=== PATIENT | female | born 1990 | race Caucasian/White ===

== ENCOUNTER 2017-09-23 21:35 | Emergency (ER) | payer OTHER ==
[2017-09-23 22:03] VITALS: BP 124/75; PULSE 66; TEMP 98.9; BMI 27.3
--- NOTE | 2017-09-23 23:02 | PDOC ---
History of Present Illness - General History Source: Patient Exam Limitations: No Limitations - History of Present Illness Initial Comments: 09/24/17 00:56 The patient is a 27 year old female with a significant past medical history of nephrolithiasis who presents to the ED with complaints of chest pain for several months. The patient reports right sided chest pain that radiates to her right rib. She states her pain is reproducible when she raises her arms and notes her chest pain is worsened on deep inspiration and cough. Patient states her present symptoms are not similar to her history of kidney stones. Denies fever or chills. Denies shortness of breath or palpitations. Denies nausea, vomiting, or diarrhea. Denies changes in urinary output. Denies focal numbness, weakness, or tingling. Denies any other symptoms. Social hx: The patient smokes 6 cigarettes a day for the past 6 years. She is currently unemployed and stays at home with her 2 kids. Last Menstrual Period: 09/15/17 <Ritika Sosa - Last Filed: 09/24/17 00:56> <Felicitas Escamilla - Last Filed: 09/24/17 02:11> - General Chief Complaint: Pain Stated Complaint: RT BREAST PAIN Time Seen by Provider: 09/23/17 23:02 Past History <Ritika Sosa - Last Filed: 09/24/17 00:56> - Past Medical History Asthma: No Cancer: No Cardiac Disorders: No COPD: No Diabetes: No HTN: No Psychiatric Problems: Yes (Anxiety) Seizures: No Thyroid Disease: No - Suicide/Smoking/Psychosocial Hx Smoking Status: Yes Smoking History: Never smoked Have you smoked in the past 12 months: Yes Number of Cigarettes Smoked Daily: 5 Information on smoking cessation initiated: No Hx Alcohol Use: No Drug/Substance Use Hx: No Substance Use Type: None Hx Substance Use Treatment: No <Felicitas Escamilla - Last Filed: 09/24/17 02:11> - Past Medical History Allergies/Adverse Reactions: Allergies Allergy/AdvReac Type Severity Reaction Status Date / Time No Known Allergies Allergy Verified 09/23/17 22:00 Home Medications: Ambulatory Orders Vitamins (Sjr) - 1 tab PO DAILY 04/21/15 Ibuprofen [Motrin -] 400 mg PO QID #28 tablet 04/22/15 Methocarbamol [Robaxin -] 500 mg PO TID #21 tablet 09/24/17 Review of Systems - Review of Systems Able to Perform ROS?: Yes Comments:: 09/24/17 00:57 CONSTITUTIONAL: Absent: fever, chills, diaphoresis, generalized weakness, malaise, loss of appetite HEENT: Absent: rhinorrhea, nasal congestion, throat pain, throat swelling, difficulty swallowing, mouth swelling, ear pain, eye pain, visual Changes CARDIOVASCULAR: + chest pain Absent: syncope, palpitations, irregular heart rate, lightheadedness, peripheral edema RESPIRATORY: Absent: cough, shortness of breath, dyspnea with exertion, orthopnea, wheezing, stridor, hemoptysis GASTROINTESTINAL: Absent: abdominal pain, abdominal distension, nausea, vomiting, diarrhea, constipation, melena, hematochezia GENITOURINARY: Absent: dysuria, frequency, urgency, hesitancy, hematuria, flank pain, genital pain MUSCULOSKELETAL: Absent: myalgia, arthralgia, joint swelling SKIN: Absent: rash, itching, pallor HEMATOLOGIC/IMMUNOLOGIC: Absent: easy bleeding, easy bruising, lymphadenopathy, frequent infections ENDOCRINE: Absent: unexplained weight gain, unexplained weight loss, heat intolerance, cold intolerance NEUROLOGIC: Absent: headache, focal weakness or paresthesias, dizziness, unsteady gait, seizure, mental status changes, bladder or bowel incontinence PSYCHIATRIC: Absent: anxiety, depression, suicidal or homicidal ideation, hallucinations. All Other Systems: Reviewed and Negative <Ritika Sosa - Last Filed: 09/24/17 00:56> *Physical Exam - Vital Signs Last Vital Signs Temp Pulse Resp BP Pulse Ox 98.9 F 66 20 124/75 99 09/23/17 22:01 09/23/17 22:01 09/23/17 22:01 09/23/17 22:01 09/23/17 22:01 - Physical Exam Comments: 09/24/17 00:57 GENERAL: Well developed, well nourished. Awake and alert. No acute distress. HEENT: Normocephalic, atraumatic. PERRLA, EOMI. No conjunctival pallor. Sclera are non- icteric. Moist mucous membranes. Oropharynx is clear. NECK: Supple. Full ROM. No JVD. Carotid pulses 2+ and symmetric, without bruits. No thyromegaly. No lymphadenopathy. CARDIOVASCULAR: Regular rate and rhythm. No murmurs, rubs, or gallops. Distal pulses are 2+ and symmetric. PULMONARY: No evidence of respiratory distress. Lungs clear to auscultation bilaterally. No wheezing, rales or rhonchi. ABDOMINAL: Soft. Non-tender. Non-distended. No rebound or guarding. No organomegaly. Normoactive bowel sounds. MUSCULOSKELETAL Normal range of motion at all joints. No bony deformities or tenderness. No CVA tenderness. EXTREMITIES: No cyanosis. No clubbing. No edema. No calf tenderness. SKIN: Warm and dry. Normal capillary refill. No rashes. No jaundice. NEUROLOGICAL: Alert, awake, appropriate. Cranial nerves 2-12 intact. No deficits to light touch and temperature in face, upper extremities and lower extremities. No motor deficits in the in face, upper extremities and lower extremities. Normoreflexic in the upper and lower extremities. Normal speech. Toes are down- going bilaterally. Gait is normal without ataxia. PSYCHIATRIC: Cooperative. Good eye contact. Appropriate mood and affect. <Ritika Sosa - Last Filed: 09/24/17 00:56> - Vital Signs Last Vital Signs Temp Pulse Resp BP Pulse Ox 98.9 F 66 20 124/75 99 09/23/17 22:01 09/23/17 22:01 09/23/17 22:01 09/23/17 22:01 09/23/17 22:01 <Felicitas Escamilla - Last Filed: 09/24/17 02:11> Heart Score/ECG Review #1 09/23/17 23:54 Sinus bradychardia at 58 bpm MD interval 126 ms QRS duration 90 ms Reported by: Dr. Escamilla <Ritika Sosa - Last Filed: 09/24/17 00:56> ED Treatment Course - LABORATORY CBC & Chemistry Diagram: 09/23/17 23:39 09/23/17 23:39 - ADDITIONAL ORDERS Additional order review: 09/23/17 23:39 RBC 4.40 MCV 84.9 MCHC 34.7 RDW 14.4 MPV 8.2 Neutrophils % 69.6 Lymphocytes % 21.2 D Monocytes % 6.6 Eosinophils % 2.1 D Basophils % 0.5 <Ritika Sosa - Last Filed: 09/24/17 00:56> - LABORATORY CBC & Chemistry Diagram: 09/23/17 23:39 09/23/17 23:39 <Felicitas Escamilla - Last Filed: 09/24/17 02:11> Medical Decision Making - Medical Decision Making 09/24/17 02:09 Pt comes with atypical Right sided CP. No rash, no falls, no bruising, and clear lungs and heart sounds normal. EKG is normal. CXR not needed. Vitals normal Pt has anxiety, and I reasured her that this is musculoskeletal pain. <Felicitas Escamilla - Last Filed: 09/24/17 02:11> *DC/Admit/Observation/Transfer - Attestations Scribe Attestion: 09/24/17 00:57 Documentation prepared by Ritika Sosa, acting as remote medical coder for Felicitas Escamilla MD <Ritika Sosa - Last Filed: 09/24/17 00:56> - Discharge Dispostion Admit: No <Felicitas Escamilla - Last Filed: 09/24/17 02:11> Diagnosis at time of Disposition: Muscular chest pain - Discharge Dispostion Disposition: HOME Condition at time of disposition: Stable - Prescriptions Prescriptions: Methocarbamol [Robaxin -] 500 mg PO TID #21 tablet - Referrals Referrals: Mariana Do MD [Primary Care Provider] - - Patient Instructions Printed Discharge Instructions: DI for Atypical Chest Pain - Post Discharge Activity
[2017-09-23] MEDS ORDERED: IBUPROFEN 600 MG TABLET (FP) PO ONE (23:29)
[2017-09-23] MEDS ORDERED: METHOCARBAMOL 500 MG TABLET PO ONE (23:29)
[2017-09-23 23:46] LABS: BASO % 0.5 % (0-2.0); EOS % 2.1 % (0-4.5); HEMATOCRIT 37.4 % (32.4-45.2); LYMPH % 21.2 % (8-40); MCH 29.4 pg (25.7-33.7); MCHC 34.7 g/dl (32.0-36.0); MEAN CELL VOLUME 84.9 fl (80-96); MEAN PLT VOLUME 8.2 fl (7.5-11.1); MONO % 6.6 % (3.8-10.2); NEUT % 69.6 % (42.8-82.8); PLATELET COUNT 232 K/MM3 (134-434); RDW 14.4 % (11.6-15.6); WHITE BLOOD COUNT 8.1 K/mm3 (4.0-10.0)
[2017-09-24 00:09] LABS: ALBUMIN 4.4 g/dl (3.4-5.0); ANION GAP 7 (8-16); BLOOD UREA NITROGEN 12 mg/dL (7-18); CALCIUM 8.6 mg/dL (8.5-10.1); CHLORIDE 106 mmol/L (98-107); CO2 28 mmol/L (21-32); CREATININE 0.8 mg/dL (0.55-1.02); GLUCOSE,RANDOM 84 mg/dL (74-106); POTASSIUM 4.3 mmol/L (3.5-5.1); SGOT/AST 15 U/L (15-37); SGPT/ALT 15 U/L (12-78); SODIUM 141 mmol/L (136-145)
[2017-09-24 00:11] LABS: ALK PHOS 71 U/L (45-117); BILIRUBIN,TOTAL 0.4 mg/dL (0.2-1.0); TOT PROT 7.6 g/dl (6.4-8.2)
[2017-09-24] MEDS ORDERED: METHOCARBAMOL 500 MG TABLET ONE (00:44)
[2017-09-24] MEDS ORDERED: IBUPROFEN 600 MG TABLET (FP) PO ONE (00:44)
--- NOTE | 2017-09-24 10:40 | EKG ---
Test Reason : Blood Pressure : / mmHG Vent. Rate : 058 BPM Atrial Rate : 058 BPM P-R Int : 126 ms QRS Dur : 090 ms QT Int : 392 ms P-R-T Axes : 054 066 055 degrees QTc Int : 384 ms SINUS BRADYCARDIA WITH SINUS ARRHYTHMIA OTHERWISE NORMAL ECG WHEN COMPARED WITH ECG OF 29-OCT-2008 18:54, VENT. RATE HAS DECREASED BY 30 BPM Confirmed by ELTON PERKINS MD ([id number]) on 09/24/2017 10:40:41 AM Referred By: Confirmed By:ELTON PERKINS MD
== END 2017-09-24 01:15 | disposition home or self-care (01) ==
LOC: JER 21:35
DX: R07.89 Other chest pain (principal)
CPT/HCPCS: 36415; 80053; 85025; 93005; 93010; 99281-25

== ENCOUNTER 2018-02-15 14:51 | Emergency (ER) | payer OTHER ==
[2018-02-15 15:01] VITALS: BP 106/56; PULSE 90; TEMP 98.3; BMI 27.3
--- NOTE | 2018-02-15 15:44 | PDOC ---
History of Present Illness - General Chief Complaint: Cold Symptoms Stated Complaint: SORE THROAT, COUGH Time Seen by Provider: 02/15/18 15:18 History Source: Patient Exam Limitations: No Limitations - History of Present Illness Initial Comments: 02/15/18 15:44 Mom here with children all ill with same respiratory infection. Was concerned about low-grade fevers and sore throat pain. States illness has been circulating around house between children and herself. Has used over-the- counter medicines with some relief. Timing/Duration: reports: constant, changing over time, getting worse Severity: reports: mild, moderate Associated Symptoms: reports: cough, earache, fever/chills, nasal congestion, nasal drainage, sore throat Past History - Travel Traveled outside of the country in the last 30 days: No Close contact w/someone who was outside of country & ill: No - Past Medical History Allergies/Adverse Reactions: Allergies Allergy/AdvReac Type Severity Reaction Status Date / Time No Known Allergies Allergy Verified 02/15/18 15:17 Home Medications: Ambulatory Orders NK [No Known Home Medication] 02/15/18 Asthma: No Cancer: No Cardiac Disorders: No COPD: No Diabetes: No HTN: No Psychiatric Problems: Yes (Anxiety) Seizures: No Thyroid Disease: No - Suicide/Smoking/Psychosocial Hx Smoking Status: Yes Smoking History: Current every day smoker Have you smoked in the past 12 months: Yes Number of Cigarettes Smoked Daily: 5 Information on smoking cessation initiated: No Hx Alcohol Use: No Drug/Substance Use Hx: No Substance Use Type: None Hx Substance Use Treatment: No Review of Systems - Review of Systems Able to Perform ROS?: Yes Is the patient limited Gabonese proficient: Yes Constitutional: Yes: Symptoms Reported, See HPI, Fever, Malaise HEENTM: Yes: Symptoms Reported, Nose Congestion, Throat Pain, Difficulty Swallowing Respiratory: Yes: Symptoms reported, See HPI, Cough. No: Wheezing ABD/GI: Yes: See HPI. No: Symptoms Reported Integumentary: No: Symptoms Reported All Other Systems: Reviewed and Negative (moist nonproductive) *Physical Exam - Vital Signs Last Vital Signs Temp Pulse Resp BP Pulse Ox 98.3 F 90 18 106/56 L 100 02/15/18 15:00 02/15/18 15:00 02/15/18 15:00 02/15/18 15:00 02/15/18 15:00 - Physical Exam General Appearance: Yes: Nourished, Appropriately Dressed, Apparent Distress, Mild Distress HEENT: positive: ROSANNE, Normal ENT Inspection, TMs Normal (congested but landmarks easily visualized), Pharynx Normal (no redness, swelling, or exudate, however noted whitish posterior sinus drainage), Nasal Congestion, Rhinorrhea. negative: Pharyngeal Erythema, Tonsillar Exudate Neck: positive: Supple, Lymphadenopathy (R), Lymphadenopathy (L) Respiratory/Chest: positive: Lungs Clear, Normal Breath Sounds. negative: Rhonchi, Wheezing (no wheezing or retractions) Gastrointestinal/Abdominal: positive: Soft Extremity: positive: Normal Capillary Refill, Normal Inspection. 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 No evidence of bacterial infection therefore will treat conservatively *DC/Admit/Observation/Transfer Diagnosis at time of Disposition: Upper respiratory infection, viral - Discharge Dispostion Disposition: HOME Condition at time of disposition: Stable Decision to Admit order: No - Referrals Referrals: Jaqueline Ramirez MD [Primary Care Provider] - - Patient Instructions Printed Discharge Instructions: DI for Viral Upper Respiratory Infection -- Adult Additional Instructions: Rest, drink lots of fluids: Teas, water, soups, Pedialyte Saltwater gargles Steamy showers/seem to face break up mucus Avoid contact with others until fevers and cough resolved Lots of handwashing and good hygiene Continue [id number] medications for symptomatic relief Tylenol or Motrin for fever and pain Followup with private physician in one to 2 days as needed Return to emergency department for worsened symptoms, fevers, dehydration - Post Discharge Activity Forms/Work/School Notes: Back to Work
== END 2018-02-15 15:36 | disposition home or self-care (01) ==
LOC: JERFT 14:51
DX: J06.9 Acute upper respiratory infection, unspecified (principal); F17.210 Nicotine dependence, cigarettes, uncomplicated; F41.9 Anxiety disorder, unspecified
CPT/HCPCS: 99281-25

== ENCOUNTER 2018-03-26 21:01 | Emergency (ER) | payer OTHER ==
[2018-03-26 21:14] VITALS: BP 113/48; PULSE 84; TEMP 99.3; BMI 27.3
--- NOTE | 2018-03-26 21:15 | PDOC ---
Rapid Medical Evaluation Chief Complaint: Nausea/Vomiting Time Seen by Provider: 03/26/18 21:12 Medical Evaluation: Allergies Allergy/AdvReac Type Severity Reaction Status Date / Time No Known Allergies Allergy Verified 02/15/18 15:17 03/26/18 21:12 I have performed a brief in person evaluation of this patient. This patient presents with a CC of: cough and "I vomited up blood x 1" Pt is a 27 YO who is who is 3 months who states over the past 24 hours she has had a cough and this morning she has been vomiting and had one episode of hemoptysis. Pt denies NSAID use, denies hx of GI bleeds, denies hx of PE. PE: Skin: Clear Lungs: Clear Heart: RRR Abd: No pain MS: Moves all extremities without difficulty. Neuro: Alert and oriented Psych: Appropriate affect I have ordered the following: Basic labs The patient will proceed to the ED for further evaluation. Discharge Disposition - Diagnosis Nausea & vomiting Qualifiers: Vomiting type: unspecified Vomiting Intractability: non-intractable Qualified Code(s): R11.2 - Nausea with vomiting, unspecified - Referrals Referrals: Jaqueline Ramirez MD [Primary Care Provider] - - Patient Instructions - Post Discharge Activity
--- NOTE | 2018-03-26 22:11 | PDOC ---
History of Present Illness - General Chief Complaint: Nausea/Vomiting Stated Complaint: COLD SYMPTOMS Time Seen by Provider: 03/26/18 21:12 - History of Present Illness Initial Comments: 03/26/18 22:09 27-year-old female with cough 5 days without fever. She had 3 episodes of vomiting today the last of the episodes she noticed the blood streak in her vomit she has no other associated symptoms Past History - Past Medical History Allergies/Adverse Reactions: Allergies Allergy/AdvReac Type Severity Reaction Status Date / Time No Known Allergies Allergy Verified 03/26/18 21:14 Home Medications: Ambulatory Orders NK [No Known Home Medication] 02/15/18 Asthma: No Cancer: No Cardiac Disorders: No COPD: No Diabetes: No HTN: No Psychiatric Problems: Yes (Anxiety) Seizures: No Thyroid Disease: No - Suicide/Smoking/Psychosocial Hx Smoking Status: Yes Smoking History: Never smoked Have you smoked in the past 12 months: Yes Number of Cigarettes Smoked Daily: 5 Information on smoking cessation initiated: No Hx Alcohol Use: No Drug/Substance Use Hx: No Substance Use Type: None Hx Substance Use Treatment: No Review of Systems - Review of Systems Constitutional: Yes: Malaise. No: Chills, Fever, Night Sweats Respiratory: Yes: Cough ABD/GI: Yes: Nausea, Vomiting *Physical Exam - Vital Signs Last Vital Signs Temp Pulse Resp BP Pulse Ox 99.3 F 84 18 113/48 L 98 03/26/18 21:11 03/26/18 21:11 03/26/18 21:11 03/26/18 21:11 03/26/18 21:11 - Physical Exam Comments: 03/26/18 22:09 HEAD: NC/AT EYES: Conjuntiva clear Ears: Canals and TM's normal NOSE: No d/c THROAT: Moist mucous membrances, oral pharanx clear, uvula midline; petica at the soft palate NECK: Supple without adenopathy CARDIAC: S1 S2 LUNGS: CTA Full and Equal breath sounds ABDOMEN: Soft NT ND MS: Full ROM in all joints without edema NEUROLOGIC: No gross sensory or motor deficits, NVID SKIN: Normal color and temperature no lesions or rashes Medical Decision Making - Medical Decision Making 03/26/18 22:10 I believe the blood tinged vomitus from the petechia at the soft palate. This is a viral upper respiratory syndrome I will have her follow-up with her PCP *DC/Admit/Observation/Transfer Diagnosis at time of Disposition: URI (upper respiratory infection) Nausea & vomiting Qualifiers: Vomiting type: unspecified Vomiting Intractability: non-intractable Qualified Code(s): R11.2 - Nausea with vomiting, unspecified - Discharge Dispostion Disposition: HOME Condition at time of disposition: Stable Decision to Admit order: No - Referrals Referrals: Jaqueline Ramirez MD [Primary Care Provider] - - Patient Instructions Printed Discharge Instructions: DI for Viral Upper Respiratory Infection -- Adult Additional Instructions: Return to the emergency room should symptoms worsen or go unresolved. Please take [id number] cough syrup as directed which will help her cough especially at night follow-up with her primary care physician once 2 days for further evaluation and treatment options - Post Discharge Activity
== END 2018-03-26 22:13 | disposition home or self-care (01) ==
LOC: JERFT 21:01 → JER 21:01 → JERFT 22:13
DX: O26.891 Other specified pregnancy related conditions, first trimester (principal); J06.9 Acute upper respiratory infection, unspecified; R11.2 Nausea with vomiting, unspecified; Z3A.12 12 weeks gestation of pregnancy
CPT/HCPCS: 99281-25

== ENCOUNTER 2018-05-15 18:06 | Observation (INO) | payer OTHER ==
[2018-05-15] MEDS ORDERED: ACETAMINOPHEN 1000 MG/100 ML VIAL (NON FORMULARY) IVPB ONE (18:17)
[2018-05-15] MEDS ORDERED: ONDANSETRON 4 MG/2 ML VIAL IVPB ONE (18:17)
--- NOTE | 2018-05-15 18:17 | PDOC ---
Rapid Medical Evaluation Medical Evaluation: Allergies Allergy/AdvReac Type Severity Reaction Status Date / Time No Known Allergies Allergy Verified 03/26/18 21:14 I have performed a brief in-person evaluation of this patient. The patient presents with a chief complaint of: lower abdominal from today; had termination of 2 weeks ago; +subjective fever and nausea; denies vomiting, diarrhea, urinary complaints; has mild vaginal spotting from recent termination Pertinent physical exam findings: In NAD, abdomen soft, ND, mild TTP in LLQ I have ordered the following: Labs The patient will proceed to the ED for further evaluation. 05/15/18 18:13 Discharge Disposition - Referrals Referrals: Jaqueline Ramirez MD [Primary Care Provider] - - Patient Instructions - Post Discharge Activity
[2018-05-15] MEDS ORDERED: ACETAMINOPHEN INJECTION 100 ML IVPB ONE (19:18)
[2018-05-15] MEDS ORDERED: ONDANSETRON 4 MG/2 ML VIAL ONE (19:19)
[2018-05-15 19:22] LABS: BASO % 0.1 % (0-2.0); HEMATOCRIT 35.5 % (32.4-45.2); HEMOGLOBIN 12.5 GM/dL (10.7-15.3); LYMPH % 2.3 % (8-40); MCH 30.4 pg (25.7-33.7); MCHC 35.2 g/dl (32.0-36.0); MEAN CELL VOLUME 86.3 fl (80-96); MEAN PLT VOLUME 8.1 fl (7.5-11.1); MONO % 2.9 % (3.8-10.2); NEUT % 94.7 % (42.8-82.8); PLATELET COUNT 302 K/MM3 (134-434); RBC 4.12 M/mm3 (3.60-5.2); RDW 13.9 % (11.6-15.6); WHITE BLOOD COUNT 26.2 K/mm3 (4.0-10.0)
[2018-05-15] MEDS ORDERED: SODIUM CHLORIDE 1,000 ML IV STA (19:31)
--- NOTE | 2018-05-15 19:32 | PDOC ---
History of Present Illness - General Chief Complaint: Pain Stated Complaint: ABD PAIN Time Seen by Provider: 05/15/18 19:29 History Source: Patient - History of Present Illness Initial Comments: 05/15/18 20:03 27 year old Female status post termination of 2 weeks ago complaining of spotting for 2 weeks, subjective fever times one day with left pelvic pain. Denies urinary symptoms, hematuria, flank pain, vaginal discharge. Patient reports having the procedure in [facility]. Patient reports feeling weak. Patient is pale appearing. Past medical history of anxiety, anemia? j2ee consultant: Dr. Aden 05/16/18 00:54 Past History - Past Medical History Allergies/Adverse Reactions: Allergies Allergy/AdvReac Type Severity Reaction Status Date / Time No Known Allergies Allergy Verified 03/26/18 21:14 Home Medications: Ambulatory Orders Doxycycline Monohydrate [Mondoxyne Nl] 100 mg PO BID #20 capsule 05/15/18 Asthma: No Cancer: No Cardiac Disorders: No COPD: No Diabetes: No HTN: No Psychiatric Problems: Yes (Anxiety) Seizures: No Thyroid Disease: No - Suicide/Smoking/Psychosocial Hx Smoking Status: Yes Smoking History: Current some day smoker Have you smoked in the past 12 months: Yes Number of Cigarettes Smoked Daily: 2 Information on smoking cessation initiated: Yes Hx Alcohol Use: Yes (Social) Drug/Substance Use Hx: No Substance Use Type: None Hx Substance Use Treatment: No Review of Systems - Review of Systems Able to Perform ROS?: Yes Is the patient limited Maltese proficient: No Constitutional: Yes: Fever, Malaise, Weakness. No: Symptoms Reported, See HPI, Chills, Diaphoresis, Loss of Appetite, Night Sweats, Weight Stable, Unintentional Wgt. Loss, Unexplained wgt Loss, Other ABD/GI: Yes: Abdominal cramping. No: Symptoms Reported, See HPI, Abdominal Distended, Abd. Pain w/ defecation, Blood Streaked Bowels, Constipated, Diarrhea , Difficulty Swallowing, Nausea, Poor Appetite, Poor Fluid Intake, Rectal Bleeding, Vomiting, Indigestion, Tarry Stools, Other : Yes: Other (vaginal bleeding, left pelvic pain) *Physical Exam - Vital Signs Last Vital Signs Temp Pulse Resp BP Pulse Ox 98.7 F 109 H 18 105/63 98 05/15/18 18:12 05/15/18 18:12 05/15/18 18:12 05/15/18 18:12 05/15/18 18:12 - Physical Exam General Appearance: Yes: Appropriately Dressed Respiratory/Chest: positive: Lungs Clear, Normal Breath Sounds Female Pelvic Exam: positive: normal external exam, cervical os closed, CMT, adnexal tenderness (left adnexal tenderness) Gastrointestinal/Abdominal: positive: Normal Bowel Sounds, Tender (left LLQ/ left pelvic/ suprapubic pain) Musculoskeletal: positive: Normal Inspection Extremity: positive: Normal Capillary Refill, Normal Inspection, Normal Range of Motion Integumentary: positive: Warm, Pale Neurologic: positive: Fully Oriented, Alert Moderate Sedation - Procedure Monitoring Vital Signs: Procedure Monitoring Vital Signs Temperature 98.7 F 05/15/18 18:12 Pulse Rate 109 H 05/15/18 18:12 Respiratory Rate 18 05/15/18 18:12 Blood Pressure 105/63 05/15/18 18:12 O2 Sat by Pulse Oximetry (%) 98 05/15/18 18:12 ED Treatment Course - LABORATORY CBC & Chemistry Diagram: 05/15/18 23:40 05/15/18 19:11 - ADDITIONAL ORDERS Additional order review: 05/15/18 19:11 RBC 4.12 MCV 86.3 MCHC 35.2 RDW 13.9 MPV 8.1 Neutrophils % 94.7 H D Lymphocytes % 2.3 L D Monocytes % 2.9 L Eosinophils % 0.0 D Basophils % 0.1 - Medications Given in the ED: ED Medications Discontinued Medications Generic Name Dose Route Start Last Admin Trade Name Freq PRN Reason Stop Dose Admin Acetaminophen 1,000 mg 05/15/18 18:17 05/15/18 19:19 Ofirmev Injection - IVPB 05/15/18 18:18 1,000 mg ONCE ONE Administration Ondansetron HCl 4 mg 05/15/18 18:17 05/15/18 19:20 Zofran Injection IVPB 05/15/18 18:18 4 mg ONCE ONE Administration Medical Decision Making - Medical Decision Making 05/15/18 20:06 A: PID; leukocytosis P: CBC : leukocytosis with bands CMP UA 05/16/18 00:53 Dr. Gilliam consulted. advised to call Dr. Nina who covers for Dr. aden. 05/16/18 01:[address] harrell. recommends doxycyline/ flagyl/ ceftriaxone x1. if clinically well patient can follow up on sunday in the clinic. patient priscilla dout to Dr. slater/ Dr. tran *DC/Admit/Observation/Transfer Diagnosis at time of Disposition: PID (pelvic inflammatory disease) Leukocytosis Qualifiers: Leukocytosis type: bandemia Qualified Code(s): D72.825 - Bandemia - Discharge Dispostion Decision to Admit order: Yes - Prescriptions Prescriptions: Doxycycline Monohydrate [Mondoxyne Nl] 100 mg PO BID #20 capsule - Referrals Referrals: Jaqueline Aden MD [Primary Care Provider] - - Patient Instructions - Post Discharge Activity
[2018-05-15 19:36] LABS: URINE APPEARANCE CLEAR; URINE BILIRUBIN NEGATIVE (<2.0 mg/dL); URINE COLOR LTYELLOW; URINE GLUCOSE (UA) NEGATIVE (NEGATIVE); URINE KETONE NEGATIVE (NEGATIVE); URINE LEUK ESTERASE NEGATIVE (NEGATIVE); URINE NITRITE NEGATIVE (NEGATIVE); URINE PROTEIN NEGATIVE (NEGATIVE); URINE UROBILINOGEN NEGATIVE mg/dL (0.2-1.0)
[2018-05-15 19:38] LABS: HCG,QUALITATIVE URINE Borderline hCG level
[2018-05-15 20:13] LABS: PLATELET ESTIMATE ADEQUATE
[2018-05-15 20:18] LABS: ALBUMIN 4.3 g/dl (3.4-5.0); CALCIUM 8.8 mg/dL (8.5-10.1); CREATININE 0.8 mg/dL (0.55-1.3); SGPT/ALT 16 U/L (13-61)
[2018-05-15 20:19] LABS: ALK PHOS 95 U/L (45-117); ANION GAP 9 MMOL/L (8-16); BILIRUBIN,TOTAL 0.6 mg/dL (0.2-1); BLOOD UREA NITROGEN 10 mg/dL (7-18); CHLORIDE 102 mmol/L (98-107); CO2 25 mmol/L (21-32); GLUCOSE,RANDOM 138 mg/dL (74-106); POTASSIUM 3.7 mmol/L (3.5-5.1); SGOT/AST 16 U/L (15-37); SODIUM 136 mmol/L (136-145); TOT PROT 7.8 g/dl (6.4-8.2)
[2018-05-15] MEDS ORDERED: LACTATED RINGERS SOLUTION 1,000 ML/1,000 ML INFUS.BAG IV SCH (21:00)
[2018-05-15] MEDS ORDERED: AZITHROMYCIN 500 MG TABLET PO ONE (23:38)
[2018-05-15] MEDS ORDERED: CEFTRIAXONE 1,000 MG in DEXTROSE 5%-WATER - 50 ML IVPB ONE (23:38)
[2018-05-15] MEDS ORDERED: SODIUM CHLORIDE 500 ML IV STA (23:39)
[2018-05-15] MEDS ORDERED: AZITHROMYCIN 500 MG TABLET ONE (23:41)
[2018-05-15] MEDS ORDERED: CEFTRIAXONE 1 GM/50 ML BAG ONE ×2 (23:42→23:43)
[2018-05-15 23:48] LABS: BASO % 0.4 % (0-2.0); EOS % 0.1 % (0-4.5); HEMATOCRIT 33.1 % (32.4-45.2); HEMOGLOBIN 11.6 GM/dL (10.7-15.3); LYMPH % 5.4 % (8-40); MCH 30.2 pg (25.7-33.7); MCHC 34.9 g/dl (32.0-36.0); MEAN CELL VOLUME 86.4 fl (80-96); MONO % 2.7 % (3.8-10.2); NEUT % 91.4 % (42.8-82.8); PLATELET COUNT 276 K/MM3 (134-434); RBC 3.83 M/mm3 (3.60-5.2); RDW 13.9 % (11.6-15.6); WHITE BLOOD COUNT 21.7 K/mm3 (4.0-10.0)
[2018-05-16 00:48] LABS: PLATELET ESTIMATE ADEQUATE
[2018-05-16] MEDS ORDERED: DOXYCYCLINE INJECTION 100 MG in DEXTROSE 5%-WATER - 100 ML IVPB ONE (01:08)
[2018-05-16] MEDS ORDERED: ACETAMINOPHEN 325 MG TABLET (FP) PO PRN (02:07)
[2018-05-16] MEDS ORDERED: DOXYCYCLINE HYCLATE 100 MG VIAL ONE (02:13)
[2018-05-16 02:19] LABS: INR 1.03 (0.83-1.09); PROTHROMBIN TIME (PATIENT) 12.2 SEC (9.7-13.0)
[2018-05-16 02:22] LABS: ACTIVATED PTT 29.3 SECONDS (25.2-36.5)
--- NOTE | 2018-05-16 02:24 | PN ---
Teaching Attending Note Name of Resident: Jose David Jade ATTENDING PHYSICIAN STATEMENT I saw and evaluated the patient. I reviewed the resident's note and discussed the case with the resident. I agree with the resident's findings and plan as documented. SUBJECTIVE: Seen and examined with resident; please see their note for further information regarding hx. Briefly, this is a 27 y/o female with a PMH of sickle cell trait and iron deficency anemia (currently normal Hb) who presents to the ER with a CC of abdominal pain after 2 weeks ago (unsure of who did procedure or where but she indicates she had anesthesia for it and that it took '2 days'). She has 2 living children. She had some discomfort since the procedure that progressed this morning to the point where she came to the hospital; did have some associated nausea and vomitting. Nothing makes her sx better or worse, hasn 't seen any other providers for this. Was on post-procedure antibiotics; unsure of how many days but she indicates that she finished a bottle of doxycycline. ER called mixing plant operator who recommended admission to medicine and rocephin, flagyl, and doxycycline which will be given. 10 sys ROS done and negative aside from HPI PMH and PSH reviewedd FH asked and noncontributory Socially she is a former smoker, has 1 sexual partner Medication list reviewed with resident OBJECTIVE: VS, labs, imaging reviewed NAD, AAO, resting in bed RRR s1/2 no mgr Lungs CTAB w/ sym exp Mildly tender lower abd, nondistended, +bs CN2-12 wnl, no fnd Normal mood, appropriate affect Labs reveal leukocytosis with unremarkable chemistry. Imaging shows thickened endometrium, stigmata of recent , etc. US and CT reviewed ASSESSMENT AND PLAN: This is a 27 y/o presenting with fever, abdominal pain, and leukocytosis after an 2 weeks ago. 1) Infection due to retained products, r/o PID, etc. -BALL WINDER to see tomorrow; will defer mixing plant operator exam to them and ER. Fever, leukocytosis, endometrial thickening seen. -Abx per mixing plant operator; on doxy, rocephin, metro. Ultimate management per mixing plant operator -Checking RPR, G/C, HIV -NPO and IVF in case procedure needed 2) H/O Iron Def. Anemia -No anemia on labs; monitor 3) H/O Sickle Cell Trait -No issues; never been hospitalized, monitor. 4) Liver cysts -Seen on CT incidentally; followup u/s in 2-3 months with PCP FENA -LR@100 -PRN replete -NPO -As tolerated DVT px: Early ambulation, scd GI px: Not indicated Consulting: Acidity Tester Full Code
--- NOTE | 2018-05-16 02:38 | HP ---
CHIEF COMPLAINT: LLQ Pain PCP: Jaqueline Ramirez HISTORY OF PRESENT ILLNESS: 27 y/o F, with PMHx of Anxiety and Sickle cell trait presents with LLQ Abdominal. Patient had a termination of approximately 2 weeks ago (at a facility in [place]). Patient has had minimal pain and vaginal spotting since then. This afternoon after napping, patient woke with sudden onset, constant, 8/10, sharp pain in LLQ that is worse with sitting upright. This is the first time she has experienced such pain. Patient has completed a course of Doxycycline 100mg BID after the procedure. She tried a warm bath which provided minimal relief and she visited the ED. Patient endorses recent fevers ( unmeasured), chills, difficulty breathing, dizziness, decreased PO Intake, nausea with one episode NBNB Vomiting. Denies any diarrhea, constipation, dysuria, hematuria, or vaginal discharge. As per patient, her first was done medicinally. Patient has a hx of 2 male sexual partners. Her and her current sexual partner do not use contraception. Patient denies any hx of STIs/ STDs; Her Last STD test was in 2015. Patient unsure if she received the HPV Vaccine. ER course was notable for: (1) CT A/P, TVUS (2) Ofirmev, Zofran, NS 1.5L (3) Azithromycin, Rocephin (4) Pelvic Exam performed by ED Recent Travel: Denies PAST MEDICAL HISTORY: Anxiety, Sickle Cell Trait PAST SURGICAL HISTORY: Denies Social History: Smokin cigarettes daily since age 22 Alcohol: Occasional Drugs: Denies Family History: Mother: Asthma Father: Cardiac hx Allergies No Known Allergies Allergy (Verified 03/26/18 21:14) HOME MEDICATIONS: Home Medications Medication Instructions Recorded NK [No Known Home Medication] 05/16/18 REVIEW OF SYSTEMS As per HPI PHYSICAL EXAMINATION Vital Signs - 24 hr 05/15/18 18:12 Temperature 98.7 F Pulse Rate 109 H Respiratory 18 Rate Blood Pressure 105/63 O2 Sat by Pulse 98 Oximetry (%) GENERAL: A&Ox3, NAD HEAD: NCAT EYES: PERRL, EOMI EARS, NOSE, THROAT: Oropharynx clear without exudates. Moist mucous membranes. NECK: Supple without lymphadenopathy or JVD LUNGS: CTA b/l, No wheezes, no crackles HEART: Regular rate and rhythm, normal S1 and S2 without murmur ABDOMEN: Soft, tender to palpation in the LLQ with minimal tendernes in the RLQ , not distended, + bowel sounds, + guarding, no rebound MUSCULOSKELETAL: No CVA tenderness. EXTREMITIES: 2+ pulses, No peripheral edema. NEUROLOGICAL: Cranial nerves II-XII intact. Normal speech SKIN: Warm, dry Laboratory Results - last 24 hr 05/15/18 05/15/18 05/15/18 19:11 19:11 19:27 WBC 26.2 H RBC 4.12 Hgb 12.5 Hct 35.5 MCV 86.3 MCH 30.4 MCHC 35.2 RDW 13.9 Plt Count 302 D MPV 8.1 Absolute Neuts (auto) 24.8 H Total Counted Neutrophils % 94.7 H D Neutrophils % (Manual) 90.0 H Band Neutrophils % 5.0 Lymphocytes % 2.3 L D Lymphocytes % (Manual) 4.0 L Monocytes % 2.9 L Monocytes % (Manual) 1 L Eosinophils % 0.0 D Eosinophils % (Manual) 0.0 Basophils % 0.1 Basophils % (Manual) 0.0 Nucleated RBC % 0 Platelet Estimate Adequate Platelet Comment Sodium 136 Potassium 3.7 Chloride 102 Carbon Dioxide 25 Anion Gap 9 BUN 10 Creatinine 0.8 Creat Clearance w eGFR > 60 Random Glucose 138 H Lactic Acid Calcium 8.8 Total Bilirubin 0.6 AST 16 ALT 16 Alkaline Phosphatase 95 Total Protein 7.8 Albumin 4.3 Beta HCG, Quant 25.2 Urine Color Ltyellow Urine Appearance Clear Urine pH 7.0 Ur Specific [place] 1.010 Urine Protein Negative Urine Glucose (UA) Negative Urine Ketones Negative Urine Blood 1+ H Urine Nitrite Negative Urine Bilirubin Negative Urine Urobilinogen Negative Ur Leukocyte Esterase Negative Urine WBC (Auto) <1 Urine RBC (Auto) None Urine HCG, Qual Borderline hcg level Blood Type Antibody Screen 05/15/18 05/15/18 05/15/18 19:30 19:50 23:40 WBC 21.7 H RBC 3.83 Hgb 11.6 Hct 33.1 MCV 86.4 MCH 30.2 MCHC 34.9 RDW 13.9 Plt Count 276 MPV 8.0 Absolute Neuts (auto) 19.8 H Total Counted 100 Neutrophils % 91.4 H Neutrophils % (Manual) 90.0 H Band Neutrophils % 1.0 Lymphocytes % 5.4 L D Lymphocytes % (Manual) 6.0 L Monocytes % 2.7 L Monocytes % (Manual) 3 L Eosinophils % 0.1 D Eosinophils % (Manual) Basophils % 0.4 D Basophils % (Manual) Nucleated RBC % 0 Platelet Estimate Adequate Platelet Comment No clumping noted Sodium Potassium Chloride Carbon Dioxide Anion Gap BUN Creatinine Creat Clearance w eGFR Random Glucose Lactic Acid 1.5 Calcium Total Bilirubin AST ALT Alkaline Phosphatase Total Protein Albumin Beta HCG, Quant Urine Color Urine Appearance Urine pH Ur Specific [place] Urine Protein Urine Glucose (UA) Urine Ketones Urine Blood Urine Nitrite Urine Bilirubin Urine Urobilinogen Ur Leukocyte Esterase Urine WBC (Auto) Urine RBC (Auto) Urine HCG, Qual Blood Type O POSITIVE Antibody Screen Negative ASSESSMENT/PLAN: 27 y/o F, with PMHx of Anxiety and Sickle cell trait presents with LLQ Abdominal pain #PID -R/O Retained contents of inception -WBC 21.7, Borderline HCG level, UA has 1+ blood -Blood Cx -TVUS reveals nonspecific endometrial thickening -CT A/P reveals endometrial thickening, Small nonobstructing renal calculi, Right hepataic lobe cysts -OBGYN (Dr. Hernandez) consulted by ED -Started on Ceftriaxone 2g Daily, Doxycycline 100mg BID, Flagyl 500mg Q8h -Tylenol for pain -Hepatitis B, HIV, RPR, Gonorrhoea, Chlamydia, Trichomonas pending #FEN -IV LR @ 100 mls/hr -Lytes wnl -NPO #PPx -DVT: SCDs, Early ambulation Dispo: Obs, Med-surg Visit type - Emergency Visit Emergency Visit: Yes Care time: The patient presented to the Emergency Department on the above date and was hospitalized for further evaluation of their emergent condition. - New Patient This patient is new to me today: Yes Date on this admission: 05/16/18 - Critical Care Critical Care patient: No
[2018-05-16] MEDS ORDERED: ACETAMINOPHEN 325 MG TABLET (FP) ONE (03:56)
[2018-05-16] MEDS: LACTATED RINGERS SOLUTION 1,000 ML/1,000 ML INFUS.BAG IV SCH (04:18)
--- NOTE | 2018-05-16 05:12 | CONSULT ---
Consult Consult Specialty:: ER Reason for Consultation:: PID vs endometritis - History of Present Illness Chief Complaint: LLQ pain History of Present Illness: 27yo s/p elective termination ~2wks ago in [place] here with LLQ pain. Subjective fevers/chills at home and vaginal spotting since the procedure that has since stopped in the last 24 hours. No purulent discharge. No known history of STIs- uncertain of last exam. 2 lifetime partners. LLQ is non radiating. No OTC meds for relief. No dysuria. No hematuria. One episode of emesis at home, none reported in ER Last saw her OB in January 2018, referred by a friend to the physician in [place] whom performed the termination- has scheduled follow up in the next week with that provider. History of 4 terminations, 1 SAB Primary OBGYN: Dr. Jaqueline Ramirez - History Source History Provided By: Patient - Past Medical History ...: No ...: 5 ...Para: 2 Heme/Onc: Yes: Current Chemotherapy, Sickle Cell Trait. No: Anemia, B12 Deficiency, Bleeding Disorder, Cancer, Current Radiation Therapy, Hemochromatosis, Hypercoaguable State, Myeloproliferative Synd, Sickle Cell Disease, Thrombocytopenia, Other Infectious Disease: Yes: STD's Psych: Yes: Anxiety, Panic Additional Medical History: one 2013 no complication - Past Surgical History Additional Surgical History: D&C - Alcohol/Substance Use Hx Alcohol Use: Yes (Social) - Smoking History Smoking history: Current some day smoker Have you smoked in the past 12 months: Yes Aproximately how many cigarettes per day: 2 - Social History History of Recent Travel: No Home Medications - Allergies Allergies/Adverse Reactions: Allergies Allergy/AdvReac Type Severity Reaction Status Date / Time No Known Allergies Allergy Verified 03/26/18 21:14 - Home Medications Home Medications: Ambulatory Orders NK [No Known Home Medication] 05/16/18 Physical Exam Vital Signs: Vital Signs Temperature 98.5 F 05/16/18 03:14 Pulse Rate 88 05/16/18 03:14 Respiratory Rate 19 05/16/18 03:14 Blood Pressure 110/78 05/16/18 03:14 O2 Sat by Pulse Oximetry (%) 98 05/15/18 18:12 Constitutional: Yes: Well Nourished, No Distress, Calm Gastrointestinal: Yes: Tenderness (LLQ tenderness however, no guarding or rebound) Labs: CBC, BMP 05/15/18 23:40 05/15/18 19:11 Imaging - Results Cat Scan: Report Reviewed, Image Reviewed Ultrasound: Report Reviewed, Image Reviewed Assessment/Plan 27yo s/p D&C here with LLQ pain, leukocytosis- endometritis vs PID Afebrile here and able to tolerate po, appears comfortable and in no distress. Is a candidate for outpatient management Elevated WBC, however, improved from 26 to 21 within a few hours; can be rechecked on an outpatient basis once she has completed at least 48 hours of oral antibiotics. Imaging reviewed, thickened ES of 2.7cm, but no discrete mass concerning for retained POCs- likely postoperative changes vs endometritis. PID vs endometritis; agree with Ceftriaxone dose x 1 here, followed by oral Doxy /Flagyl course x 14 days as outpatient Should follow up with [facility] in next 48 hours as outpatient, have CBC rechecked, contraception counseling. Tylenol/Motrin for pain as needed Tyra Hernandez MD
[2018-05-16 05:13] VITALS: BMI 26.9
[2018-05-16] MEDS ORDERED: ACETAMINOPHEN 1000 MG/100 ML VIAL (NON FORMULARY) IVPB ONE (06:15)
[2018-05-16] MEDS ORDERED: SODIUM CHLORIDE 1,000 ML IV STA (06:40)
--- NOTE | 2018-05-16 07:04 | RAPID ---
Physical Examination Vital Signs: Vital Signs Temperature 102.8 F H 05/16/18 06:30 Pulse Rate 90 05/16/18 06:30 Respiratory Rate 18 05/16/18 05:08 Blood Pressure 123/63 05/16/18 06:30 O2 Sat by Pulse Oximetry (%) 98 05/16/18 05:08 Labs: CBC, BMP 05/15/18 23:40 05/15/18 19:11 Rapid Response - Rapid Response Assessment: Rapid response was called at 06:12. call or contact centre team leader team responded immediately. Informed by nursing staff that patient is Tachycardic to 148, and Hypotensive to 90s/60s. T 102.8, 91/59, HR 143, Tachypneic, 99% RA Rigors, Anxious in moderate distress RRR S1 S2 CTA b/l Severe abdominal pain with palpation of LLQ A/P #Sepsis likely due to PID -IV Ofirmev 1000mg Ordered -LR changed to wide open -2nd IV Line started, NS Bolus started -Spoke with Dr. Segal, Continue ABx management -Repeat BP after fluid given 102/64, HR 90
[2018-05-16 07:24] LABS: BASO % 0.2 % (0-2.0); EOS % 0.2 % (0-4.5); HEMATOCRIT 28.4 % (32.4-45.2); HEMOGLOBIN 10.2 GM/dL (10.7-15.3); LYMPH % 7.9 % (8-40); MCHC 35.7 g/dl (32.0-36.0); MEAN CELL VOLUME 86.9 fl (80-96); MEAN PLT VOLUME 8.3 fl (7.5-11.1); MONO % 0.9 % (3.8-10.2); NEUT % 90.8 % (42.8-82.8); PLATELET COUNT 204 K/MM3 (134-434); RBC 3.27 M/mm3 (3.60-5.2); RDW 13.8 % (11.6-15.6); WHITE BLOOD COUNT 7.5 K/mm3 (4.0-10.0)
[2018-05-16 08:54] LABS: ALBUMIN 2.8 g/dl (3.4-5.0); ALK PHOS 71 U/L (45-117); ANION GAP 7 MMOL/L (8-16); BILIRUBIN,TOTAL 0.4 mg/dL (0.2-1); BLOOD UREA NITROGEN 7 mg/dL (7-18); CALCIUM 7.3 mg/dL (8.5-10.1); CHLORIDE 109 mmol/L (98-107); CO2 24 mmol/L (21-32); CREATININE 0.5 mg/dL (0.55-1.3); GLUCOSE,RANDOM 112 mg/dL (74-106); MAGNESIUM 1.7 mg/dL (1.8-2.4); PHOSPHOROUS 2.5 mg/dL (2.5-4.9); POTASSIUM 3.6 mmol/L (3.5-5.1); SGOT/AST 12 U/L (15-37); SGPT/ALT 16 U/L (13-61); SODIUM 140 mmol/L (136-145); TOT PROT 5.7 g/dl (6.4-8.2)
[2018-05-16] MEDS ORDERED: CEFTRIAXONE 2 GM in DEXTROSE 5%-WATER 100 ML IVPB SCH (10:00)
[2018-05-16] MEDS ORDERED: PT OWN MED DRAWER 7, Y5N ONE ×2 (10:16→21:10)
[2018-05-16] MEDS ORDERED: DEXTROSE 5%-WATER 100 ML IVPB ONE (10:17)
[2018-05-16] MEDS: DOXYCYCLINE INJECTION 100 MG in DEXTROSE 5%-WATER - 100 ML IVPB SCH ×2 (10:27→21:25)
--- NOTE | 2018-05-16 12:11 | EKG ---
Test Reason : Blood Pressure : / mmHG Vent. Rate : 068 BPM Atrial Rate : 068 BPM P-R Int : 130 ms QRS Dur : 086 ms QT Int : 396 ms P-R-T Axes : 068 045 055 degrees QTc Int : 421 ms NORMAL SINUS RHYTHM WITH SINUS ARRHYTHMIA NORMAL ECG WHEN COMPARED WITH ECG OF 23-SEP-2017 23:44, NO SIGNIFICANT CHANGE WAS FOUND Confirmed by ROSA OCHOA MD ([id number]) on 05/16/2018 12:10:48 PM Referred By: AMY BARNETT Confirmed By:ROSA OCHOA MD
--- NOTE | 2018-05-16 13:41 | PN ---
Physical Exam: SUBJECTIVE: Patient seen and examined this AM. She states she is still having pain but feeling better than earlier this morning. OBJECTIVE: Vital Signs Period Temp Pulse Resp BP Sys/[place] Pulse Ox Last 24 Hr 98.2 F-102.8 F 79-109 18-19 100-123/49-78 98-98 GENERAL: A&O, no acute distress HEAD: Normocephalic, atraumatic. EYES: PERRL, no scleral icterus EARS, NOSE, THROAT: oropharynx clear without exudates. Moist mucous membranes. NECK: supple without lymphadenopathy LUNGS: CTA b/l, no crackles or wheezes HEART: Regular rate and rhythm, normal S1 and S2 without murmur ABDOMEN: Soft, tender to palpation worst in the suprapubic region, normoactive bowel sounds MUSCULOSKELETAL: No bony deformities or tenderness. NEUROLOGICAL: Cranial nerves II-XII grossly intact. Normal speech. PSYCHIATRIC: Cooperative. Good eye contact. Appropriate mood and affect. Laboratory Results - last 24 hr 05/15/18 05/15/18 05/15/18 19:11 19:11 19:27 WBC 26.2 H RBC 4.12 Hgb 12.5 Hct 35.5 MCV 86.3 MCH 30.4 MCHC 35.2 RDW 13.9 Plt Count 302 D MPV 8.1 Absolute Neuts (auto) 24.8 H Total Counted Neutrophils % 94.7 H D Neutrophils % (Manual) 90.0 H Band Neutrophils % 5.0 Lymphocytes % 2.3 L D Lymphocytes % (Manual) 4.0 L Monocytes % 2.9 L Monocytes % (Manual) 1 L Eosinophils % 0.0 D Eosinophils % (Manual) 0.0 Basophils % 0.1 Basophils % (Manual) 0.0 Nucleated RBC % 0 Platelet Estimate Adequate Platelet Comment PT with INR INR PTT (Actin FS) Sodium 136 Potassium 3.7 Chloride 102 Carbon Dioxide 25 Anion Gap 9 BUN 10 Creatinine 0.8 Creat Clearance w eGFR > 60 Random Glucose 138 H Lactic Acid Calcium 8.8 Phosphorus Magnesium Total Bilirubin 0.6 AST 16 ALT 16 Alkaline Phosphatase 95 Total Protein 7.8 Albumin 4.3 Beta HCG, Quant 25.2 Urine Color Ltyellow Urine Appearance Clear Urine pH 7.0 Ur Specific [place] 1.010 Urine Protein Negative Urine Glucose (UA) Negative Urine Ketones Negative Urine Blood 1+ H Urine Nitrite Negative Urine Bilirubin Negative Urine Urobilinogen Negative Ur Leukocyte Esterase Negative Urine WBC (Auto) <1 Urine RBC (Auto) None Urine HCG, Qual Borderline hcg level RPR Titer Blood Type Antibody Screen 05/15/18 05/15/18 05/15/18 19:30 19:50 23:40 WBC 21.7 H RBC 3.83 Hgb 11.6 Hct 33.1 MCV 86.4 MCH 30.2 MCHC 34.9 RDW 13.9 Plt Count 276 MPV 8.0 Absolute Neuts (auto) 19.8 H Total Counted 100 Neutrophils % 91.4 H Neutrophils % (Manual) 90.0 H Band Neutrophils % 1.0 Lymphocytes % 5.4 L D Lymphocytes % (Manual) 6.0 L Monocytes % 2.7 L Monocytes % (Manual) 3 L Eosinophils % 0.1 D Eosinophils % (Manual) Basophils % 0.4 D Basophils % (Manual) Nucleated RBC % 0 Platelet Estimate Adequate Platelet Comment No clumping noted PT with INR INR PTT (Actin FS) Sodium Potassium Chloride Carbon Dioxide Anion Gap BUN Creatinine Creat Clearance w eGFR Random Glucose Lactic Acid 1.5 Calcium Phosphorus Magnesium Total Bilirubin AST ALT Alkaline Phosphatase Total Protein Albumin Beta HCG, Quant Urine Color Urine Appearance Urine pH Ur Specific [place] Urine Protein Urine Glucose (UA) Urine Ketones Urine Blood Urine Nitrite Urine Bilirubin Urine Urobilinogen Ur Leukocyte Esterase Urine WBC (Auto) Urine RBC (Auto) Urine HCG, Qual RPR Titer Blood Type O POSITIVE Antibody Screen Negative 05/16/18 05/16/18 05/16/18 01:43 06:30 06:30 WBC 7.5 RBC 3.27 L Hgb 10.2 L Hct 28.4 L MCV 86.9 MCH 31.0 MCHC 35.7 RDW 13.8 Plt Count 204 D MPV 8.3 Absolute Neuts (auto) 6.8 Total Counted Neutrophils % 90.8 H Neutrophils % (Manual) Band Neutrophils % Lymphocytes % 7.9 L D Lymphocytes % (Manual) Monocytes % 0.9 L Monocytes % (Manual) Eosinophils % 0.2 D Eosinophils % (Manual) Basophils % 0.2 Basophils % (Manual) Nucleated RBC % 0 Platelet Estimate Platelet Comment PT with INR 12.20 INR 1.03 PTT (Actin FS) 29.3 Sodium 140 Potassium 3.6 Chloride 109 H Carbon Dioxide 24 Anion Gap 7 L BUN 7 Creatinine 0.5 L Creat Clearance w eGFR > 60 Random Glucose 112 H Lactic Acid Calcium 7.3 L Phosphorus 2.5 Magnesium 1.7 L Total Bilirubin 0.4 AST 12 L ALT 16 Alkaline Phosphatase 71 Total Protein 5.7 L Albumin 2.8 L Beta HCG, Quant Urine Color Urine Appearance Urine pH Ur Specific [place] Urine Protein Urine Glucose (UA) Urine Ketones Urine Blood Urine Nitrite Urine Bilirubin Urine Urobilinogen Ur Leukocyte Esterase Urine WBC (Auto) Urine RBC (Auto) Urine HCG, Qual RPR Titer Blood Type Antibody Screen 05/16/18 05/16/18 06:30 09:45 WBC RBC Hgb Hct MCV MCH MCHC RDW Plt Count MPV Absolute Neuts (auto) Total Counted Neutrophils % Neutrophils % (Manual) Band Neutrophils % Lymphocytes % Lymphocytes % (Manual) Monocytes % Monocytes % (Manual) Eosinophils % Eosinophils % (Manual) Basophils % Basophils % (Manual) Nucleated RBC % Platelet Estimate Platelet Comment PT with INR INR PTT (Actin FS) Sodium Potassium Chloride Carbon Dioxide Anion Gap BUN Creatinine Creat Clearance w eGFR Random Glucose Lactic Acid 1.5 Calcium Phosphorus Magnesium Total Bilirubin AST ALT Alkaline Phosphatase Total Protein Albumin Beta HCG, Quant Urine Color Urine Appearance Urine pH Ur Specific [place] Urine Protein Urine Glucose (UA) Urine Ketones Urine Blood Urine Nitrite Urine Bilirubin Urine Urobilinogen Ur Leukocyte Esterase Urine WBC (Auto) Urine RBC (Auto) Urine HCG, Qual RPR Titer Nonreactive Blood Type Antibody Screen Active Medications Generic Name Dose Route Start Last Admin Trade Name Freq PRN Reason Stop Dose Admin Acetaminophen 650 mg 05/16/18 02:07 05/16/18 04:18 Tylenol - PO 650 mg Q6H PRN Administration Fever Or Pain Ceftriaxone Sodium 2 gm/ 100 mls @ 200 mls/hr 05/16/18 10:00 05/16/18 10:26 Dextrose IVPB 200 mls/hr DAILY BRYCE Administration Protocol Doxycycline Hyclate 100 mg/ 100 mls @ 50 mls/hr 05/16/18 10:00 05/16/18 10:27 Dextrose IVPB 50 mls/hr BID BRYCE Administration Metronidazole 500 mg in 100 mls @ 100 mls/hr 05/16/18 10:00 05/16/18 10:27 Flagyl 500mg Premixed Ivpb - IVPB 100 mls/hr Q8H-IV BRYCE Administration Lactated Ringer's 1,000 ml in 1,000 mls @ 100 mls/hr 05/16/18 02:30 05/16/18 04:18 Lactated Ringers Solution IV 100 mls/hr ASDIR BRYCE Administration ASSESSMENT/PLAN: 27 y/o F, with PMHx of Anxiety and Sickle cell trait presents with LLQ Abdominal pain Sepsis likely secondary to Endometritis -WBC 26 on admission, febrile to 102.8 this AM -Likely PID secondary to recent instrumentation for D&C -CT Abd/Pelv noted -Transvaginal US noted -ID Consulted -powerhouse electrician apprentice Consulted -Zosyn/Doxy as per ID -Repeat/follow blood cultures -HIV pending -RPR negative -Hep panel pending -C & G & T ordered -Lactic acid 1.5, repeat following episode of hypotension and fever stable at 1.5 Anxiety -Stable, not on any home medications for anxiety at this time Sickle Cell Trait -Stable, no history of crisis DVT Prophylaxis -Lovenox 40 mg SQ Daily FEN -Fluids: LR @ 100 cc/hr -Electrolytes: HypoMg, HypoPhos, HypoK, replete, BMP in AM -Nutrition: Regular Diet Disposition Med/Surg Visit type - Emergency Visit Emergency Visit: Yes ED Registration Date: 05/16/18 Care time: The patient presented to the Emergency Department on the above date and was hospitalized for further evaluation of their emergent condition. - New Patient This patient is new to me today: Yes Date on this admission: 05/16/18 - Critical Care Critical Care patient: No
--- NOTE | 2018-05-16 13:43 | PN ---
Progress Note (short form) - Note Progress Note: ID Consult dictated Probable endometritis R/O sepsis secondary to WATER JET OPERATOR source Repeat BC Empiric zosyn/ doxycycline
[2018-05-16] MEDS ORDERED: MAGNESIUM SULF 50% (8.12 MEQ/2 ML-1 GM VIAL) IVPB ONE (14:15)
--- NOTE | 2018-05-16 14:50 | CONS ---
INFECTIOUS DISEASE CONSULTATION DATE OF CONSULTATION: 05/16/2018 Patient is a 27-year-old female who is evaluated for sepsis. The patient underwent an elective termination of approximately 2 weeks prior to admission. She was admitted to the hospital on May 15, 2018, with worsening lower abdominal and pelvic pain as well as vaginal spotting, fever, and nausea. Her initial post-procedure course was uncomplicated. Symptoms worsened on the day of admission, prompting her to be evaluated in the emergency room. She was empirically treated with doxycycline and ceftriaxone for possible PID. A transvaginal ultrasound showed endometrial thickening. CAT scan of the abdomen and pelvis showed nonspecific endometrial thickening and a nonobstructing left kidney stone. Patient initially had a high white count of 26,000 which has since normalized. However, this morning, the patient developed the onset of shaking chills, fever to 102.8, tachycardia, and hypotension. A rapid response was called. At the present time, she is awake and responsive. She complains of pelvic pain. Vaginal spotting has improved. She denies any vaginal discharge. Positive nausea. No vomiting. Denies urinary tract symptoms. ALLERGIES: No known allergies. LABORATORY DATA: White count on admission 26,000, presently 7.5; hematocrit 28.4; platelets 204. Creatinine 0.5. Urinalysis: Less than 1 white cell. RPR negative. HIV test pending. Chlamydia and gonorrhea probe pending. PHYSICAL EXAMINATION: General: She is awake and alert, supine in bed, in moderate distress secondary to pelvic pain. Vital Signs: Temperature 102.8; blood pressure 123/63; pulse 90, regular; respirations 20 per minute. HEENT: Sclerae are anicteric. Heart: Sounds S1, S2. Lungs: Clear. Abdomen: Soft. There is suprapubic tenderness to palpation. Extremities: Negative for edema. Negative Homans sign. IMPRESSION: 1. Probable endometritis. 2. Rule out sepsis secondary to endometritis. Repeat blood cultures. Substitute Zosyn 3.375 g IV piggyback every 8 hours, continue doxycycline 100 mg IV piggyback every 12 hours. Await cultures, chlamydia and GC probe, HIV testing. GREASER HELPER followup. Thank you for the kind referral. SHAY SANTORO M.D. [id number]
[2018-05-16] MEDS ORDERED: PNEUMOC 13-VAL CONJ-DIP CRM/PF 0.5 ML DISP.SYRIN IM ONE (15:05)
[2018-05-16] MEDS ORDERED: FLU VACCINE QUAD 60 MCG/0.5 ML (MDV 18-19) IM ONE (15:06)
[2018-05-16] MEDS ORDERED: DEXTROSE 5%-WATER - 50 ML IVPB ONE (15:36)
[2018-05-16] MEDS ORDERED: PIPERACILLIN/TAZOBACTAM 3.375 GM VIAL IVPB ONE (15:36)
[2018-05-16] MEDS: ENOXAPARIN NA (PORCINE) 40 MG/0.4 ML DISP.SYRIN SQ SCH (15:56)
[2018-05-16] MEDS: PIPERACILLIN/TAZOB 3.375 GM 3.375 GM in DEXTROSE 5%-WATER - 50 ML IVPB SCH ×2 (15:56→17:54)
[2018-05-16] MEDS ORDERED: PNEUMOCOCCAL 23 VACCINE 0.5 ML VIAL IM ONE (16:00)
--- NOTE | 2018-05-16 17:11 | PN ---
Teaching Attending Note Name of Resident: Andre Xiao ATTENDING PHYSICIAN STATEMENT I saw and evaluated the patient. I reviewed the resident's note and discussed the case with the resident. I agree with the resident's findings and plan as documented. SUBJECTIVE: she is in no distress at this time, she was hypotensive this morning and COMPOSITE BOND WORKER was called for her. At this time she only complains of suprapubic pain. is tolerating po. OBJECTIVE: sitting in bed with no distress, moves with no distress and no peritoneal signs MMM No occular discharge No nasal discharge CVS:S1S2 CTAB Abd: BS+ has mild tenderness in the supra pubic area with no peritoneal signs. Last Vital Signs Temp Pulse Resp BP Pulse Ox 98.3 F 65 18 116/61 98 05/16/18 15:45 05/16/18 15:45 05/16/18 15:45 05/16/18 15:45 05/16/18 05:08 CBCD WBC 7.5 K/mm3 (4.0-10.0) 05/16/18 06:30 RBC 3.27 M/mm3 (3.60-5.2) L 05/16/18 06:30 Hgb 10.2 GM/dL (10.7-15.3) L 05/16/18 06:30 Hct 28.4 % (32.4-45.2) L 05/16/18 06:30 MCV 86.9 fl (80-96) 05/16/18 06:30 MCHC 35.7 g/dl (32.0-36.0) 05/16/18 06:30 RDW 13.8 % (11.6-15.6) 05/16/18 06:30 Plt Count 204 K/MM3 (134-434) D 05/16/18 06:30 MPV 8.3 fl (7.5-11.1) 05/16/18 06:30 CMP Sodium 140 mmol/L (136-145) 05/16/18 06:30 Potassium 3.6 mmol/L (3.5-5.1) 05/16/18 06:30 Chloride 109 mmol/L (98-107) H 05/16/18 06:30 Carbon Dioxide 24 mmol/L (21-32) 05/16/18 06:30 Anion Gap 7 MMOL/L (8-16) L 05/16/18 06:30 BUN 7 mg/dL (7-18) 05/16/18 06:30 Creatinine 0.5 mg/dL (0.55-1.3) L 05/16/18 06:30 Creat Clearance w eGFR > 60 (>60) 05/16/18 06:30 Random Glucose 112 mg/dL (74-106) H 05/16/18 06:30 Calcium 7.3 mg/dL (8.5-10.1) L 05/16/18 06:30 Total Bilirubin 0.4 mg/dL (0.2-1) 05/16/18 06:30 AST 12 U/L (15-37) L 05/16/18 06:30 ALT 16 U/L (13-61) 05/16/18 06:30 Alkaline Phosphatase 71 U/L (45-117) 05/16/18 06:30 Total Protein 5.7 g/dl (6.4-8.2) L 05/16/18 06:30 Albumin 2.8 g/dl (3.4-5.0) L 05/16/18 06:30 cultures pending ASSESSMENT AND PLAN: PID:s/p I&D for termination of , ID and OBGYN evaluated the patient and their recs appreciated pending BCX and GC results counseling: patient was counseled about safe sex practices multiple unwanted pregnancies: she states that she used to be on progestrone injections before, counceled to follow up with her OBGYN for further planning Dispo: pending response to the antibiotics
[2018-05-16] MEDS: NAPH,MB-DB/K PH,MBDB POWDER PACKET PO SCH (21:24)
[2018-05-16] MEDS: POTASSIUM CHLORIDE TABS 20 MEQ TABLET.ER (FP) PO SCH (21:24)
[2018-05-17] MEDS ORDERED: PIPERACILLIN/TAZOBACTAM 3.375 GM VIAL IVPB ONE ×3 (02:17→17:27)
[2018-05-17] MEDS ORDERED: DEXTROSE 5%-WATER - 50 ML IVPB ONE ×3 (02:17→17:28)
[2018-05-17] MEDS: PIPERACILLIN/TAZOB 3.375 GM 3.375 GM in DEXTROSE 5%-WATER - 50 ML IVPB SCH ×3 (02:20→17:33)
[2018-05-17 06:06] LABS: HEP.C VIRUS AB 0.2 s/co ratio (0.0-0.9)
[2018-05-17 06:28] VITALS: TEMP 98.4
[2018-05-17 08:05] LABS: HEMOGLOBIN 10.3 GM/dL (10.7-15.3); MCH 29.2 pg (25.7-33.7); MCHC 33.1 g/dl (32.0-36.0); MEAN CELL VOLUME 88.2 fl (80-96); MEAN PLT VOLUME 8.4 fl (7.5-11.1); PLATELET COUNT 209 K/MM3 (134-434); RBC 3.51 M/mm3 (3.60-5.2); RDW 13.9 % (11.6-15.6); WHITE BLOOD COUNT 5.7 K/mm3 (4.0-10.0)
[2018-05-17 08:36] LABS: ANION GAP 7 MMOL/L (8-16); BLOOD UREA NITROGEN 9 mg/dL (7-18); CALCIUM 7.7 mg/dL (8.5-10.1); CHLORIDE 112 mmol/L (98-107); CO2 22 mmol/L (21-32); CREATININE 0.5 mg/dL (0.55-1.3); GLUCOSE,RANDOM 89 mg/dL (74-106); MAGNESIUM 2.4 mg/dL (1.8-2.4); POTASSIUM 4.3 mmol/L (3.5-5.1); SODIUM 141 mmol/L (136-145)
[2018-05-17 08:58] VITALS: BP 112/61; PULSE 53
--- NOTE | 2018-05-17 09:13 | PN ---
Physical Exam: SUBJECTIVE: Patient seen and examined this AM. She states that she is feeling much better this morning than yesterday. She says that her pain is improved and presently she has no pain at all. OBJECTIVE: Vital Signs Period Temp Pulse Resp BP Sys/Aguayo Pulse Ox Last 24 Hr 98.3 F-98.4 F 53-65 18-18 102-116/56-61 97-98 GENERAL: A&O, no acute distress HEAD: Normocephalic, atraumatic. EYES: PERRL, no scleral icterus EARS, NOSE, THROAT: oropharynx clear without exudates. Moist mucous membranes. NECK: supple without lymphadenopathy LUNGS: CTA b/l, no crackles or wheezes HEART: Regular rate and rhythm, normal S1 and S2 without murmur ABDOMEN: Soft, minimally tender to palpation worst in the suprapubic region, normoactive bowel sounds MUSCULOSKELETAL: No bony deformities or tenderness. NEUROLOGICAL: Cranial nerves II-XII grossly intact. Normal speech. PSYCHIATRIC: Cooperative. Good eye contact. Appropriate mood and affect. Laboratory Results - last 24 hr 05/16/18 05/16/18 05/16/18 06:30 06:30 06:30 WBC RBC Hgb Hct MCV MCH MCHC RDW Plt Count MPV Sodium Potassium Chloride Carbon Dioxide Anion Gap BUN Creatinine Creat Clearance w eGFR Random Glucose Lactic Acid Calcium Phosphorus Magnesium RPR Titer Nonreactive Hepatitis A IgM Ab Negative Hep Bs Antigen Negative Hep B Core IgM Ab Negative Hepatitis C Antibody 0.2 HIV Genotype Non reactive 05/16/18 05/17/18 05/17/18 09:45 07:00 07:00 WBC 5.7 RBC 3.51 L Hgb 10.3 L Hct 31.0 L MCV 88.2 MCH 29.2 MCHC 33.1 RDW 13.9 Plt Count 209 MPV 8.4 Sodium 141 Potassium 4.3 Chloride 112 H Carbon Dioxide 22 Anion Gap 7 L BUN 9 Creatinine 0.5 L Creat Clearance w eGFR > 60 Random Glucose 89 Lactic Acid 1.5 Calcium 7.7 L Phosphorus 3.0 Magnesium 2.4 RPR Titer Hepatitis A IgM Ab Hep Bs Antigen Hep B Core IgM Ab Hepatitis C Antibody HIV Genotype Active Medications Generic Name Dose Route Start Last Admin Trade Name Freq PRN Reason Stop Dose Admin Acetaminophen 650 mg 05/16/18 02:07 05/16/18 04:18 Tylenol - PO 650 mg Q6H PRN Administration Fever Or Pain Enoxaparin Sodium 40 mg 05/16/18 14:00 05/16/18 15:56 Lovenox - SQ 40 mg DAILY BRYCE Administration Doxycycline Hyclate 100 mg/ 100 mls @ 50 mls/hr 05/16/18 10:00 05/16/18 21:25 Dextrose IVPB 50 mls/hr BID BRYCE Administration Lactated Ringer's 1,000 ml in 1,000 mls @ 100 mls/hr 05/16/18 02:30 05/16/18 04:18 Lactated Ringers Solution IV 100 mls/hr ASDIR BRYCE Administration Piperacillin Sod/Tazobactam 50 mls @ 100 mls/hr 05/16/18 14:00 05/17/18 02:20 Sod 3.375 gm/ Dextrose IVPB 100 mls/hr Q8H-IV BRYCE Administration Protocol Potassium Chloride 40 meq 05/16/18 22:00 05/16/18 21:24 K-Dur - PO 05/17/18 10:01 40 meq BID BRYCE Administration Potassium Phos/Sodium Phos 1 packet 05/16/18 22:00 05/16/18 21:24 Phos-Nak Packet - PO 05/18/18 21:59 1 packet BID BRYCE Administration ASSESSMENT/PLAN:
[2018-05-17] MEDS: NAPH,MB-DB/K PH,MBDB POWDER PACKET PO SCH (10:21)
[2018-05-17] MEDS: ENOXAPARIN NA (PORCINE) 40 MG/0.4 ML DISP.SYRIN SQ SCH (10:21)
[2018-05-17] MEDS: LACTATED RINGERS SOLUTION 1,000 ML/1,000 ML INFUS.BAG IV SCH (10:21)
[2018-05-17] MEDS: POTASSIUM CHLORIDE TABS 20 MEQ TABLET.ER (FP) PO SCH (10:21)
[2018-05-17] MEDS: DOXYCYCLINE INJECTION 100 MG in DEXTROSE 5%-WATER - 100 ML IVPB SCH (10:21)
--- NOTE | 2018-05-17 14:53 | PN ---
Teaching Attending Note Name of Resident: Andre Xiao ATTENDING PHYSICIAN STATEMENT I saw and evaluated the patient. I reviewed the resident's note and discussed the case with the resident. I agree with the resident's findings and plan as documented. SUBJECTIVE: she has no complaints at this time and has been tolerating Po and has no vasginal discharge and complaints at this time. OBJECTIVE: she is in no distress MMM No occular discharge No nasal discharge CVS:S1S2 CTAB ABD: BS+ NT/ND, no suprapubic tenderness ext: No edema Last Vital Signs Temp Pulse Resp BP Pulse Ox 98.4 F 53 L 18 112/61 97 05/17/18 08:57 05/17/18 08:57 05/17/18 08:57 05/17/18 08:57 05/17/18 02:00 CBCD WBC 5.7 K/mm3 (4.0-10.0) 05/17/18 07:00 RBC 3.51 M/mm3 (3.60-5.2) L 05/17/18 07:00 Hgb 10.3 GM/dL (10.7-15.3) L 05/17/18 07:00 Hct 31.0 % (32.4-45.2) L 05/17/18 07:00 MCV 88.2 fl (80-96) 05/17/18 07:00 MCHC 33.1 g/dl (32.0-36.0) 05/17/18 07:00 RDW 13.9 % (11.6-15.6) 05/17/18 07:00 Plt Count 209 K/MM3 (134-434) 05/17/18 07:00 MPV 8.4 fl (7.5-11.1) 05/17/18 07:00 CMP Sodium 141 mmol/L (136-145) 05/17/18 07:00 Potassium 4.3 mmol/L (3.5-5.1) 05/17/18 07:00 Chloride 112 mmol/L (98-107) H 05/17/18 07:00 Carbon Dioxide 22 mmol/L (21-32) 05/17/18 07:00 Anion Gap 7 MMOL/L (8-16) L 05/17/18 07:00 BUN 9 mg/dL (7-18) 05/17/18 07:00 Creatinine 0.5 mg/dL (0.55-1.3) L 05/17/18 07:00 Creat Clearance w eGFR > 60 (>60) 05/17/18 07:00 Random Glucose 89 mg/dL (74-106) 05/17/18 07:00 Calcium 7.7 mg/dL (8.5-10.1) L 05/17/18 07:00 Total Bilirubin 0.4 mg/dL (0.2-1) 05/16/18 06:30 AST 12 U/L (15-37) L 05/16/18 06:30 ALT 16 U/L (13-61) 05/16/18 06:30 Alkaline Phosphatase 71 U/L (45-117) 05/16/18 06:30 Total Protein 5.7 g/dl (6.4-8.2) L 05/16/18 06:30 Albumin 2.8 g/dl (3.4-5.0) L 05/16/18 06:30 Current Medications Generic Name Dose Route Start Last Admin Trade Name Freq PRN Reason Stop Dose Admin Acetaminophen 650 mg 05/16/18 02:07 05/16/18 04:18 Tylenol - PO 650 mg Q6H PRN Administration Fever Or Pain Enoxaparin Sodium 40 mg 05/16/18 14:00 05/17/18 10:21 Lovenox - SQ 40 mg DAILY BRYCE Administration Doxycycline Hyclate 100 mg/ 100 mls @ 50 mls/hr 05/16/18 10:00 05/17/18 10:21 Dextrose IVPB 50 mls/hr BID BRYCE Administration Lactated Ringer's 1,000 ml in 1,000 mls @ 100 mls/hr 05/16/18 02:30 05/17/18 10:21 Lactated Ringers Solution IV 100 mls/hr ASDIR BRYCE Administration Piperacillin Sod/Tazobactam 50 mls @ 100 mls/hr 05/16/18 14:00 05/17/18 10:21 Sod 3.375 gm/ Dextrose IVPB 100 mls/hr Q8H-IV BRYCE Administration Protocol Potassium Phos/Sodium Phos 1 packet 05/16/18 22:00 05/17/18 10:21 Phos-Nak Packet - PO 05/18/18 21:59 1 packet BID BRYCE Administration ASSESSMENT AND PLAN: 27 Y/O F W endometritis in the setting of recent I&D. Is on IV ZOSYN and DOXY and at this time has been tolerating po and the BCX has been negative, pending results of the urine GC and the BCX from yesterday. Will discuss with ID regards to possible switching tpo Po regimen and DC home today.( has been afebrile for 24 hours at this time
--- NOTE | 2018-05-17 16:28 | PN ---
Progress Note, Physician History of Present Illness: OOB in chair Non toxic appearing No complaints No abdominal / pelvic pain No fever/ chills Afebrile WBC WNL BC (-) - Current Medication List Current Medications: Active Medications Acetaminophen (Tylenol -) 650 mg PO Q6H PRN PRN Reason: Fever Or Pain Last Admin: 05/16/18 04:18 Dose: 650 mg Enoxaparin Sodium (Lovenox -) 40 mg SQ DAILY BRYCE Last Admin: 05/17/18 10:21 Dose: 40 mg Doxycycline Hyclate 100 mg/ (Dextrose) 100 mls @ 50 mls/hr IVPB BID BRYCE Last Admin: 05/17/18 10:21 Dose: 50 mls/hr Piperacillin Sod/Tazobactam (Sod 3.375 gm/ Dextrose) 50 mls @ 100 mls/hr IVPB Q8H-IV BRYCE; Protocol Last Admin: 05/17/18 10:21 Dose: 100 mls/hr - Objective Vital Signs: Vital Signs Temperature 98.4 F 05/17/18 08:57 Pulse Rate 53 L 05/17/18 08:57 Respiratory Rate 18 05/17/18 08:57 Blood Pressure 112/61 05/17/18 08:57 O2 Sat by Pulse Oximetry (%) 97 05/17/18 02:00 Constitutional: Yes: No Distress Eyes: Yes: Conjunctiva Clear Cardiovascular: Yes: Regular Rate and Rhythm, S1, S2 Respiratory: Yes: CTA Bilaterally Gastrointestinal: Yes: Normal Bowel Sounds, Soft. No: Tenderness Edema: No Labs: CBC, BMP 05/17/18 07:00 05/17/18 07:00 INR, PTT INR 1.03 (0.83-1.09) 05/16/18 01:43 Assessment/Plan Probable endometritis S/P ETOP Switch to Augmentin 875mg po bid + Doxycycline 100mg po bid to complete 10d course (IV + po) Outpatient TOWN MANAGER follow up
--- NOTE | 2018-05-17 16:50 | DS ---
Physical Exam: SUBJECTIVE: Patient seen and examined this AM. She states that she is feeling much better today, denies fevers and chills overnight, and states that her pain is much improved. OBJECTIVE: Vital Signs Period Temp Pulse Resp BP Sys/Aguayo Pulse Ox Last 24 Hr 98.4 F-98.4 F 53-56 18-18 102-112/56-61 97-98 PHYSICAL EXAM GENERAL: A&O, no acute distress HEAD: Normocephalic, atraumatic. EYES: PERRL, no scleral icterus EARS, NOSE, THROAT: oropharynx clear without exudates. Moist mucous membranes. NECK: supple without lymphadenopathy LUNGS: CTA b/l, no crackles or wheezes HEART: Regular rate and rhythm, normal S1 and S2 without murmur ABDOMEN: Soft, minimally tender to palpation worst in the suprapubic region, normoactive bowel sounds MUSCULOSKELETAL: No bony deformities or tenderness. NEUROLOGICAL: Cranial nerves II-XII grossly intact. Normal speech. PSYCHIATRIC: Cooperative. Good eye contact. Appropriate mood and affect. LABS Laboratory Results - last 24 hr 05/16/18 05/16/18 05/17/18 06:30 06:30 07:00 WBC 5.7 RBC 3.51 L Hgb 10.3 L Hct 31.0 L MCV 88.2 MCH 29.2 MCHC 33.1 RDW 13.9 Plt Count 209 MPV 8.4 Sodium Potassium Chloride Carbon Dioxide Anion Gap BUN Creatinine Creat Clearance w eGFR Random Glucose Calcium Phosphorus Magnesium Hepatitis A IgM Ab Negative Hep Bs Antigen Negative Hep B Core IgM Ab Negative Hepatitis C Antibody 0.2 HIV Genotype Non reactive 05/17/18 07:00 WBC RBC Hgb Hct MCV MCH MCHC RDW Plt Count MPV Sodium 141 Potassium 4.3 Chloride 112 H Carbon Dioxide 22 Anion Gap 7 L BUN 9 Creatinine 0.5 L Creat Clearance w eGFR > 60 Random Glucose 89 Calcium 7.7 L Phosphorus 3.0 Magnesium 2.4 Hepatitis A IgM Ab Hep Bs Antigen Hep B Core IgM Ab Hepatitis C Antibody HIV Genotype HOSPITAL COURSE: Date of Admission:05/16/18 Date of Discharge: 05/17/18 HPI on Admission: 27 y/o F, with PMHx of Anxiety and Sickle cell trait presents with LLQ Abdominal. Patient had a termination of approximately 2 weeks ago (at a facility in [place]). Patient has had minimal pain and vaginal spotting since then. This afternoon after napping, patient woke with sudden onset, constant, 8/10, sharp pain in LLQ that is worse with sitting upright. This is the first time she has experienced such pain. Patient has completed a course of Doxycycline 100mg BID after the procedure. She tried a warm bath which provided minimal relief and she visited the ED. Patient endorses recent fevers ( unmeasured), chills, difficulty breathing, dizziness, decreased PO Intake, nausea with one episode NBNB Vomiting. Denies any diarrhea, constipation, dysuria, hematuria, or vaginal discharge. As per patient, her first was done medicinally. Patient has a hx of 2 male sexual partners. Her and her current sexual partner do not use contraception. Patient denies any hx of STIs/ STDs; Her Last STD test was in 2015. Patient unsure if she received the HPV Vaccine. Rapid Response: Pt hypotensive and febrile to 102.8. Given Fluids, pressure responded appropriately. Hospital Course: Seen by ID who increased abx to Zosyn and Doxy. Seen by Proposal Director who did not recommend any further management other than continued abx and outpatient follow up. She was greatly improved with resolution of all symptoms and deemed safe for discharge. ID recommended Augmentin 875 for total 10 days abx and Doxy 100 mg PO BID for total 10 days with Proposal Director follow up. Minutes to complete discharge: 35 Discharge Summary Reason For Visit: FEMALE PELVIC INFLAMMOTORY DISEASE Current Active Problems Leukocytosis (Acute) PID (pelvic inflammatory disease) (Acute) Condition: Stable - Instructions Diet, Activity, Other Instructions: You were admitted to the hospital for pelvic pain likely secondary to an infection. You were given antibiotics and seen by a Plastics Process Hand. You were observed for another day and seen by an infection doctor after an episode of high fever and low blood pressure and a concern that you were septic. However your fever has improved and your blood pressure is normal. Your pain has mostly resolved and at this point you are medically safe to go home with oral antibiotics. You should take Doxycycline 100 mg Twice daily for 7 more days. One pill in the morning and one at night You should also take Augmentin 875 mg by mouth twice daily for 7 more days. One pill in the morning and one at night You should follow up with your primary care physician within 1 week of discharge from the hospital. You should also follow up with your banker mason within two weeks of discharge from the hospital. If your pain becomes severe or you have high fevers or any other concerning symptoms, you should be seen by your doctor or return to the Emergency Department. Referrals: Jaqueline Ramirez MD [Primary Care Provider] - Disposition: HOME - Home Medications Comprehensive Discharge Medication List: Ambulatory Orders Amox-Tr/K Cl [Augmentin - 875Mg Tablet] 1 tab PO BID #14 tablet 05/17/18 Doxycycline Hyclate [Vibramycin -] 100 mg PO BID #14 cap 05/17/18 This patient is new to me today: No Emergency Visit: Yes ED Registration Date: 05/16/18 Care time: The patient presented to the Emergency Department on the above date and was hospitalized for further evaluation of their emergent condition. Critical Care patient: No - Discharge Referral Referred to [facility] No
== END 2018-05-17 19:00 | disposition home or self-care (01) ==
LOC: JER 18:06 → JERBED 05-16 01:12 → J6S 05-16 06:20
PROVIDERS: ADMIT Internal Medicine; ATTEND Internal Medicine
PROC: 3E0337Z Introduction of Electrolytic and Water Balance Substance into Peripheral Vein, Percutaneous Approach (ICD-10-PCS; principal; 2018-05-16)
PROC: 3E033GC Introduction of Other Therapeutic Substance into Peripheral Vein, Percutaneous Approach (ICD-10-PCS; 2018-05-16)
PROC: 3E033NZ Introduction of Analgesics, Hypnotics, Sedatives into Peripheral Vein, Percutaneous Approach (ICD-10-PCS; 2018-05-16)
PROC: 3E0234Z Introduction of Serum, Toxoid and Vaccine into Muscle, Percutaneous Approach (ICD-10-PCS; 2018-05-16)
PROC: 3E02340 Introduction of Influenza Vaccine into Muscle, Percutaneous Approach (ICD-10-PCS; 2018-05-16)
DX: N73.8 Other specified female pelvic inflammatory diseases (principal); D72.825 Bandemia; D57.3 Sickle-cell trait; K76.89 Other specified diseases of liver; A41.89 Other specified sepsis; F41.9 Anxiety disorder, unspecified; F17.210 Nicotine dependence, cigarettes, uncomplicated; N93.9 Abnormal uterine and vaginal bleeding, unspecified; R00.0 Tachycardia, unspecified; I95.9 Hypotension, unspecified; D72.829 Elevated white blood cell count, unspecified; Z23 Encounter for immunization
CPT/HCPCS: 36415; 74177-TC; 76830-TC; 80048; 80053; 80074; 81003; 81015; 83605; 83735; 84100; 84702; 84703; 85025; 85027; 85610; 85730; 86593; 86705; 86850; 86900; 86901; 87040; 87389; 87491; 87591; 87661; 90471; 90688; 90732; 93005; 93010; 96361; 96365; 96367; 96368; 96375; 99285-25; G0009; G0378; J0131; J7030

== ENCOUNTER 2020-11-29 17:42 | Emergency (ER) | payer OTHER ==
[2020-11-29 17:57] VITALS: BP 108/74; PULSE 71; TEMP 98.6; BMI 31.2
== END 2020-11-29 18:56 | disposition home or self-care (01) ==
LOC: JERFT 17:42
DX: H60.501 Unspecified acute noninfective otitis externa, right ear (principal); H61.21 Impacted cerumen, right ear
CPT/HCPCS: 99282-25

== ENCOUNTER 2021-02-24 19:52 | Emergency (ER) | payer OTHER ==
[2021-02-24 20:21] VITALS: BP 102/88; PULSE 69; TEMP 98.9
== END 2021-02-24 21:05 | disposition home or self-care (01) ==
LOC: JER 19:52 → JERFT 19:52
DX: R09.81 Nasal congestion (principal); J34.89 Other specified disorders of nose and nasal sinuses
CPT/HCPCS: 99283-25

== ENCOUNTER 2021-07-21 13:03 | Emergency (ER) | payer OTHER ==
[2021-07-21 13:38] VITALS: BP 95/61; PULSE 81; TEMP 98.1; BMI 30.4
[2021-07-21] MEDS ORDERED: KETOROLAC TROMETHAMINE 60 MG/2 ML VIAL IM ONE (13:59)
[2021-07-21] MEDS ORDERED: KETOROLAC TROMETHAMINE 30 MG/1 ML VIAL ONE (14:01)
== END 2021-07-21 15:27 | disposition home or self-care (01) ==
LOC: JERFT 13:03
PROC: 3E0233Z Introduction of Anti-inflammatory into Muscle, Percutaneous Approach (ICD-10-PCS; principal; 2021-07-21)
DX: S93.402A Sprain of unspecified ligament of left ankle, initial encounter (principal); X50.0XXA Overexertion from strenuous movement or load, initial encounter
CPT/HCPCS: 73590-TC-LT-FY; 73610-TC-LT-FY; 73630-TC-LT; 99284-25

== ENCOUNTER 2022-03-19 18:10 | Emergency (ER) | payer OTHER ==
[2022-03-19 18:17] VITALS: BP 109/72; PULSE 81; RESP 18; TEMP 98.6; BMI 28.7
[2022-03-19] MEDS ORDERED: LIDOCAINE 5% TOPICAL PATCH TP ONE (19:27)
[2022-03-19] MEDS ORDERED: KETOROLAC TROMETHAMINE 30 MG/1 ML VIAL IM ONE (19:27)
[2022-03-19] MEDS ORDERED: ACETAMINOPHEN 500 MG TABLET (FP) PO ONE (19:27)
[2022-03-19] MEDS ORDERED: diazePAM 5 MG TABLET PO ONE (19:27)
[2022-03-19] MEDS ORDERED: LIDOCAINE 5% TOPICAL PATCH ONE (19:29)
[2022-03-19] MEDS ORDERED: KETOROLAC TROMETHAMINE 30 MG/1 ML VIAL ONE (19:30)
[2022-03-19] MEDS ORDERED: ACETAMINOPHEN 500 MG TABLET (FP) ONE (19:30)
[2022-03-19] MEDS ORDERED: diazePAM 5 MG TABLET ONE (19:30)
[2022-03-19] MEDS ORDERED: LIDOCAINE PATCH REMOVAL MC SCH (22:00)
== END 2022-03-19 20:37 | disposition home or self-care (01) ==
LOC: JERFT 18:10 → JER 18:10 → JERFT 20:37
PROC: 3E0233Z Introduction of Anti-inflammatory into Muscle, Percutaneous Approach (ICD-10-PCS; principal; 2022-03-19)
DX: M54.50 Low back pain, unspecified (principal); V89.2XXA Person injured in unspecified motor-vehicle accident, traffic, initial encounter; Y92.9 Unspecified place or not applicable
CPT/HCPCS: 99283-25

== ENCOUNTER 2022-11-27 18:20 | Emergency (ER) | payer OTHER ==
[2022-11-27 18:39] VITALS: BP 106/63; PULSE 74; RESP 16; TEMP 98; BMI 26.4
[2022-11-27 18:48] LABS: HCG,QUALITATIVE URINE Negative
[2022-11-27 18:57] LABS: EPITHELIAL CELLS FEW /hpf
[2022-11-27] MEDS ORDERED: SODIUM CHLORIDE 1,000 ML IV STA (19:05)
[2022-11-27] MEDS ORDERED: KETOROLAC TROMETHAMINE 30 MG/1 ML VIAL IVPUSH ONE (19:06)
[2022-11-27] MEDS ORDERED: KETOROLAC TROMETHAMINE 30 MG/1 ML VIAL ONE (19:12)
[2022-11-27 19:39] LABS: HEMOGLOBIN 14.5 G/dL (10.7-15.3); MCH 30.9 pg (25.7-33.7); MCHC 34.4 g/dl (32.0-36.0); MEAN PLT VOLUME 8.2 fl (7.5-11.1); PLATELET COUNT 256.1 10^3/uL (134-434); RBC 4.67 10^6/uL (3.60-5.2); RDW 13.5 % (11.6-15.6); WHITE BLOOD COUNT 8.5 10^3/uL (4.0-10.8)
[2022-11-27 19:42] LABS: PLATELET ESTIMATE ADEQUATE
[2022-11-27 19:58] LABS: ALBUMIN 4.6 g/dl (3.4-5.0); BILIRUBIN,TOTAL 0.8 mg/dl (0.2-1); CALCIUM 9.2 mg/dl (8.5-10.1); CREATININE 0.7 mg/dl (0.6-1.3); SGOT/AST 13.4 U/L (15-37); TOT PROT 7.1 g/dl (6.4-8.2)
== END 2022-11-27 20:55 | disposition home or self-care (01) ==
LOC: FER 18:20
PROC: 3E0333Z Introduction of Anti-inflammatory into Peripheral Vein, Percutaneous Approach (ICD-10-PCS; principal; 2022-11-27)
PROC: 3E0337Z Introduction of Electrolytic and Water Balance Substance into Peripheral Vein, Percutaneous Approach (ICD-10-PCS; 2022-11-27)
DX: K52.9 Noninfective gastroenteritis and colitis, unspecified (principal); R10.31 Right lower quadrant pain; R11.0 Nausea
CPT/HCPCS: 36415; 71046-TC-FY; 74176-TC; 80053; 81003; 81015; 84703; 85027; 87086; 87186; 99285-25

== ENCOUNTER 2023-01-26 18:10 | Emergency (ER) | payer OTHER ==
[2023-01-26 18:23] VITALS: BP 119/71; PULSE 74; RESP 18; TEMP 98.9; BMI 28.3
[2023-01-26] MEDS ORDERED: PSEUDOEPHEDRINE HCL 30 MG TABLET PO ONE ×2 (20:17→20:22)
[2023-01-26] MEDS ORDERED: PSEUDOEPHEDRINE HCL 60 MG TABLET ONE (20:21)
== END 2023-01-26 21:22 | disposition home or self-care (01) ==
LOC: JERFT 18:10
DX: R50.9 Fever, unspecified (principal); R53.81 Other malaise; R09.81 Nasal congestion; R09.82 Postnasal drip; R05.9 Cough, unspecified; R06.02 Shortness of breath; R07.89 Other chest pain; R63.0 Anorexia; J06.9 Acute upper respiratory infection, unspecified; Z20.822 Contact with and (suspected) exposure to COVID-19
CPT/HCPCS: 0241U-QW; 71046-TC-FY; 99284-25

== ENCOUNTER 2023-03-17 11:55 | Emergency (ER) | payer OTHER ==
[2023-03-17 12:04] VITALS: BP 91/42; PULSE 60; RESP 20; TEMP 98.9; BMI 27.3
[2023-03-17] MEDS ORDERED: IBUPROFEN 600 MG TABLET (FP) PO ONE ×2 (13:21→13:28)
== END 2023-03-17 14:41 | disposition home or self-care (01) ==
LOC: JERFT 11:55
DX: M25.572 Pain in left ankle and joints of left foot (principal); S93.402A Sprain of unspecified ligament of left ankle, initial encounter; R22.42 Localized swelling, mass and lump, left lower limb; X50.0XXA Overexertion from strenuous movement or load, initial encounter; Y93.01 Activity, walking, marching and hiking; Y99.0 Civilian activity done for income or pay
CPT/HCPCS: 73610-TC-LT-FY; 99283-25

== ENCOUNTER 2023-09-27 13:42 | Emergency (ER) | payer OTHER ==
[2023-09-27 13:49] VITALS: BP 109/63; PULSE 60; RESP 18; TEMP 98; BMI 28.5
== END 2023-09-27 14:53 | disposition home or self-care (01) ==
LOC: JERFT 13:42
DX: H57.89 Other specified disorders of eye and adnexa (principal)
CPT/HCPCS: 99282-25

== ENCOUNTER 2024-02-14 11:34 | Emergency (ER) | payer OTHER ==
[2024-02-14 11:45] VITALS: BP 111/76; PULSE 70; RESP 18; TEMP 97.6; BMI 28.3
[2024-02-14 12:56] LABS: URINE APPEARANCE CLEAR; URINE BILIRUBIN NEGATIVE (NEGATIVE); URINE COLOR YELLOW; URINE GLUCOSE (UA) NEGATIVE (NEGATIVE); URINE KETONE NEGATIVE (NEGATIVE); URINE LEUK ESTERASE NEGATIVE (NEGATIVE); URINE NITRITE NEGATIVE (NEGATIVE); URINE PROTEIN NEGATIVE (NEGATIVE); URINE UROBILINOGEN 0.2 mg/dL (0.2-1.0)
[2024-02-14 12:59] LABS: HCG,QUALITATIVE URINE Negative
[2024-02-14 14:44] LABS: HEMATOCRIT 38.4 % (32.4-45.2); MCH 28.8 pg (25.7-33.7); MCHC 33.8 g/dl (32.0-36.0); MEAN CELL VOLUME 85.5 fl (80-96); MEAN PLT VOLUME 7.8 fl (7.5-11.1); PLATELET COUNT 261 10^3/uL (134-434); WHITE BLOOD COUNT 4.5 K/mm3 (4.0-10.0)
[2024-02-14 15:08] LABS: CHLORIDE 106 mmol/L (98-107); POTASSIUM 3.9 mmol/L (3.5-5.1); SODIUM 137 mmol/L (136-145)
[2024-02-14 15:10] LABS: ALBUMIN 3.9 g/dl (3.4-5.0); ANION GAP 3 mmol/L (4-13); CALCIUM 9.1 mg/dL (8.5-10.1); CO2 28 mmol/L (21-32)
[2024-02-14 15:11] LABS: BLOOD UREA NITROGEN 13.8 mg/dL (7-18); GLUCOSE,RANDOM 91 mg/dL (74-106)
[2024-02-14 15:14] LABS: CREATININE 0.6 mg/dL (0.55-1.3); SGOT/AST 21 U/L (15-37); SGPT/ALT 28 U/L (13-61)
[2024-02-14 15:15] LABS: BILIRUBIN,TOTAL 0.5 mg/dL (0.2-1); TOT PROT 7.1 g/dl (6.4-8.2)
[2024-02-14 15:16] LABS: ALK PHOS 63 U/L (45-117)
[2024-02-14 16:03] LABS: HIV INTERPRETATION NEGATIVE (NEGATIVE)
== END 2024-02-14 16:11 | disposition home or self-care (01) ==
LOC: JER 11:34
DX: R55 Syncope and collapse (principal); R51.9 Headache, unspecified; R07.9 Chest pain, unspecified; R42 Dizziness and giddiness
CPT/HCPCS: 36415; 71046-TC-FY; 80053; 81003; 82550; 84484; 84703; 85027; 86803; 87389; 93005; 93010; 99285-25